=== PATIENT | male | born 1975 | race Caucasian/White ===

== ENCOUNTER 2023-02-03 07:09 | Emergency (ER) | payer OTHER ==
[2023-02-03 07:36] LABS: #Eosinphils 0.2 thou/uL (0.0-0.7); #Monocytes 0.7 thou/uL (0.11-0.59); #Neutrophils 4.3 thou/uL (1.40-6.50); %Basophils 0.4 % (0.0-1.0); %Lymphocytes 30.5 % (21.0-51.0); %Monocytes 8.8 % (0.0-10.0); Hematocrit 41.2 % (42.0-52.0); Hemoglobin 13.9 g/dL (14.0-18.0); Mean Corpuscular HGB CONC 33.7 g/dL (32.0-36.0); Mean Corpuscular Hemoglobin 30.4 pg (27.0-31.0); Mean Corpuscular Volume 90.2 fl (78.0-98.0); Mean Platelet Volume 9.2 fL (7.4-10.4); Platelet Count 279 10x3/uL (130-400); RBC Distribution Width 11.9 % (11.5-14.5); Red Blood Cell (RBC) Count 4.57 mill/uL (4.70-6.10); White Blood Cell (WBC) Count 7.4 10x3/uL (4.8-10.8)
[2023-02-03 07:58] LABS: ALT (SGPT) 29 U/L (8-55); AST (SGOT) 23 U/L (5-34); Albumin 4.3 g/dL (3.5-5.0); Alkaline Phosphatase 78 U/L (40-110); Anion Gap 11 mmol/L (10-20); BUN (Urea Nitrogen) 17 mg/dL (8.9-20.6); Bilirubin, Total 0.8 mg/dL (0.2-1.2); Calc. Creatinine Clearance 0 mL/min (70-130); Calcium 9.4 mg/dL (7.8-10.44); Carbon Dioxide 28 mmol/L (22-29); Chloride 108 mmol/L (98-107); Estimated GFR 102; Globulin 2.8 g/dL (2.4-3.5); Glucose 97 mg/dL (70-105); Lipase 34 U/L (8-78); Potassium 4.3 mmol/L (3.5-5.1); Protein, Total 7.1 g/dL (6.0-8.3); Sodium 143 mmol/L (136-145)
[2023-02-03 08:02] LABS: Troponin I Less than 0.010 ng/mL (< 0.028)
[2023-02-03] MEDS ORDERED: Vancomycin 1 GM/200 ML (FROZEN) BAG ONE (10:07)
[2023-02-03] MEDS ORDERED: Lidocaine 1% PF 5 ML VIAL ONE (10:07)
[2023-02-03] MEDS ORDERED: Ketorolac Tromethamine 30 MG/ML VIAL ONE (10:28)
== END 2023-02-03 11:40 ==
LOC: ERS 07:09
DX: L03.032 Cellulitis of left toe (principal); I10 Essential (primary) hypertension; E78.5 Hyperlipidemia, unspecified; Z79.82 Long term (current) use of aspirin; Z79.899 Other long term (current) drug therapy
CPT/HCPCS: 10060; 71045; 80053; 83690; 84484; 85025; 86140; 93005; 96365; 96366; 96375; J1885; J3370-JW